=== PATIENT | female | born 1990 | race American Indian/Alaskan Native ===

== ENCOUNTER 2017-03-22 10:16 | Emergency (ER) | payer MEDICAID ==
[2017-03-22 10:20] VITALS: BP 120/76; PULSE 97; RESP 20; TEMP 98.1; O2SAT 100
[2017-03-22] MEDS ORDERED: Sodium Chloride 0.9% 1,000 ML IV ONE (10:52)
[2017-03-22] MEDS ORDERED: Sodium Chloride 0.9% 1,000 ML ONE (11:03)
[2017-03-22 12:13] LABS: BASO % 0.8 % (0.0-2.0); EOS % 0.3 % (0.0-4.0); HEMATOCRIT 36.3 % (34.0-47.0); LYMPH # 1.4 K/uL (1.0-4.3); MEAN CELL VOLUME 76.6 fL (81.0-99.0); MEAN CORPUSCULAR HGB CONC 32.6 g/dL (33.0-37.0); MEAN PLATELET VOLUME 8.4 fL (7.2-11.7); MONO # 0.4 K/uL (0.0-0.8); MONO % 6.5 % (0.0-10.0); NRBC % 0.2 % (0.0-2.0); RED CELL DISTRIBUTION WIDTH 14.5 % (11.5-14.5); WHITE BLOOD COUNT 6.2 K/uL (4.8-10.8)
[2017-03-22 12:24] LABS: RBC URINE 10 /hpf (0-3); URINE BILIRUBIN NEGATIVE (NEGATIVE); URINE BLOOD 2+ (NEGATIVE); URINE COLOR Yellow (YELLOW); URINE GLUCOSE (UA) NORMAL (Normal); URINE KETONE NEGATIVE (NEGATIVE); URINE LEUKOCYTE ESTERASE NEG Leu/uL (Negative); URINE PROTEIN NEGATIVE (NEGATIVE); URINE UROBILINOGEN NORMAL mg/dL (0.2-1.0); WBC URINE 1 /hpf (0-5)
--- NOTE | 2017-03-22 13:32 | US ---
HISTORY: nonpreg, bleeding and pain for 3 weeks COMPARISON: None available. TECHNIQUE: Transabdominal and transvaginal FINDINGS: UTERUS: Measures 8.0 x 4.9 x 4.7 cm. Right posterior intramural fibroid, 2.8 x 2.1 x 2.4 cm. ENDOMETRIUM: Measures 5 mm in diameter. Unremarkable. CERVIX: No cervical abnormality identified. RIGHT OVARY: Measures 4.4 x 2.3 x 4.1 cm. No solid mass. Normal flow. LEFT OVARY: Measures 4.1 x 2.5 x 3.7 cm. No solid mass. Normal flow. FREE FLUID: No significant free fluid noted. OTHER FINDINGS: None. IMPRESSION: 2.8 cm uterine fibroid. Otherwise unremarkable examination.
[2017-03-22 14:37] LABS: BLOOD UREA NITROGEN 7 mg/dL (7-17); GLUCOSE,RANDOM 103 mg/dL (65-105)
[2017-03-22 14:38] LABS: ALB/GLOB RATIO 1.3 (1.0-2.1); BILIRUBIN,TOTAL 0.7 mg/dL (0.2-1.3); CALCIUM 9.2 mg/dl (8.6-10.4); CARBON DIOXIDE 23 mmol/L (22-30); CHLORIDE 102 mmol/L (98-107); GFR AFRICAN-AMERICAN > 60; POTASSIUM 3.7 mmol/L (3.6-5.2); SODIUM 137 mmol/L (132-148); TOTAL PROTEIN 7.5 g/dL (6.3-8.3)
[2017-03-22 14:39] LABS: ALKALINE PHOSPHATASE 42 U/L (38-126); ALT/SGPT 15 U/L (9-52); AST/SGOT 26 U/L (14-36)
--- NOTE | 2017-03-22 15:14 | C.PDOC ---
History Of Present Illness 26 year old female presents to ED with complaints of vaginal bleeding for 3 weeks. She reports feeling mild intermittent cramping pelvic pain which radiates to back. She denies any urinary symptoms or . She denies any weakness, headache, dizziness. Time Seen by Provider: 03/22/17 10:45 Chief Complaint (Nursing): Female Genitourinary History Per: Patient History/Exam Limitations: no limitations Onset/Duration Of Symptoms: Days Associated Symptoms: denies: Fever, Nausea, Vomiting Past Medical History Reviewed: Historical Data, Nursing Documentation, Vital Signs Vital Signs: Last Vital Signs Temp 98.1 F 03/22/17 10:18 Pulse 97 H 03/22/17 10:18 Resp 20 03/22/17 10:18 BP 120/76 03/22/17 10:18 Pulse Ox 100 03/22/17 16:04 Family History: States: No Known Family Hx - Social History Hx Alcohol Use: Yes Hx Substance Use: No Review Of Systems Constitutional: Negative for: Fever, Chills Cardiovascular: Negative for: Chest Pain Respiratory: Negative for: Shortness of Breath Gastrointestinal: Negative for: Nausea, Vomiting, Diarrhea Genitourinary: Positive for: Vaginal Bleeding Musculoskeletal: Positive for: Other (Pelvic Pain) Neurological: Negative for: Weakness, Dizziness Physical Exam - Physical Exam Appears: Non-toxic, No Acute Distress Skin: Normal Color, Warm Head: Atraumatic, Normacephalic Eye(s): bilateral: Normal Inspection, PERRL, EOMI Oral Mucosa: Moist Neck: Normal ROM Chest: Symmetrical Cardiovascular: Rhythm Regular Respiratory: Normal Breath Sounds, No Rales, No Rhonchi, No Wheezing Gastrointestinal/Abdominal: Bowel Sounds (active), Soft, No Tenderness, No Mass , No Distention, No Guarding, No Rebound Back: Normal Inspection, No CVA Tenderness, No Vertebral Tenderness, No Paraspinal Tenderness Extremity: Normal ROM, No Deformity, No Swelling Neurological/Psych: Oriented x3, Normal Speech Gait: Steady ED Course And Treatment - Laboratory Results Result Diagrams: 03/22/17 11:53 03/22/17 11:53 Lab Interpretation: No Acute Changes O2 Sat by Pulse Oximetry: 100 (Room air ) Pulse Ox Interpretation: Normal Medical Decision Making Medical Decision Makin y.o female with vaginal bleeding for 3 weeks. Exam unremarkable Plan: * Labs * US * IV NS Progress: Labs show normal H/H and WNL US shows fibroid. Patient remained well and in no acute distress with stable vital signs. Discussed results with patient, and instructed her to follow up with pump house technician. Will prescribe provera for 10 days. Advise return to ER if symptoms worsen or new symptoms arise. Disposition Counseled Patient/Family Regarding: Studies Performed, Diagnosis, Need For Followup, Rx Given - Disposition Disposition: HOME/ ROUTINE Disposition Time: 14:00 Condition: GOOD Forms: Work/School/Gym Excuse - POA Present On Arrival: None - Clinical Impression Clinical Impression: Dysfunctional uterine bleeding - PA / CRM MARKETING SPECIALIST / Resident Statement MD/DO has reviewed & agrees with the documentation as recorded. - Scribe Statement The provider has reviewed the documentation as recorded by the Karla Green All medical record entries made by the Karla were at my direction and personally dictated by me. I have reviewed the chart and agree that the record accurately reflects my personal performance of the history, physical exam, medical decision making, and the department course for this patient. I have also personally directed, reviewed, and agree with the discharge instructions and disposition.
== END 2017-03-22 14:09 | disposition home or self-care (01) ==
LOC: C.ER 10:16
DX: N93.8 Other specified abnormal uterine and vaginal bleeding (principal)
CPT/HCPCS: 76830; 76856; 80053; 81001; 84703; 85025; 96360; 99283; J7040

== ENCOUNTER 2017-12-20 19:33 | Emergency (ER) | payer MEDICAID ==
[2017-12-20 20:00] VITALS: O2SAT 98
[2017-12-20] MEDS ORDERED: Sodium Chloride 0.9% 1,000 ML IV ONE (20:27)
[2017-12-20 20:51] LABS: BASO % 0.5 % (0.0-2.0); EOS % 0.5 % (0.0-4.0); HCG,QUALITATIVE URINE NEGATIVE (NEGATIVE); LYMPH # 2.1 K/uL (1.0-4.3); LYMPH % 28.4 % (20.0-40.0); MEAN CELL VOLUME 66.2 fL (81.0-99.0); MEAN CORPUSCULAR HEMOGLOBIN 21.1 pg (27.0-31.0); MEAN CORPUSCULAR HGB CONC 31.9 g/dL (33.0-37.0); MEAN PLATELET VOLUME 7.6 fL (7.2-11.7); MONO # 0.5 K/uL (0.0-0.8); MONO % 6.3 % (0.0-10.0); NEUT # 4.9 K/uL (1.8-7.0); NEUT % 64.3 % (50.0-75.0); RBC 4.72 Mil/uL (3.80-5.20); RED CELL DISTRIBUTION WIDTH 17.2 % (11.5-14.5); WHITE BLOOD COUNT 7.6 K/uL (4.8-10.8)
[2017-12-20] MEDS ORDERED: Sodium Chloride 0.9% 1,000 ML ONE (20:51)
[2017-12-20 20:54] LABS: SQUAMOUS EPITHIAL 1 /hpf (0-5); URINE BACTERIA RARE (<OCC); URINE BILIRUBIN NEGATIVE (NEGATIVE); URINE BLOOD NEGATIVE (NEGATIVE); URINE CLARITY Clear (Clear); URINE COLOR Straw (YELLOW); URINE GLUCOSE (UA) NORMAL (Normal); URINE LEUKOCYTE ESTERASE NEG Leu/uL (Negative); URINE NITRATE NEGATIVE (NEGATIVE); URINE PROTEIN NEGATIVE (NEGATIVE); URINE UROBILINOGEN NORMAL mg/dL (0.2-1.0)
[2017-12-20 21:03] LABS: ALB/GLOB RATIO 1.2 (1.0-2.1); ALBUMIN 4.2 g/dL (3.5-5.0); ALT/SGPT 17 U/L (9-52); AST/SGOT 25 U/L (14-36); BLOOD UREA NITROGEN 6 mg/dL (7-17); CALCIUM 9.5 mg/dl (8.6-10.4); GFR AFRICAN-AMERICAN > 60; GFR NON-AFRICAN AMERICAN > 60; LIPASE 96 U/L (23-300)
--- NOTE | 2017-12-20 21:09 | C.PDOC ---
History Of Present Illness 27 y/o female presents to the ER complaining of intermittent epigastric pain which has been present for the past 3 weeks. Patient states that she has associated nausea and vomiting. Patient reports that her LMP was on 11/25/17. She notes that her periods are irregular and she is not sure if she is . Otherwise, patient denies recent illness,fever, chest pain, SOB, food intolerance, back pain, diarrhea, constipation, and UTI sx. Time Seen by Provider: 12/20/17 20:02 Chief Complaint (Nursing): Abdominal Pain History Per: Patient History/Exam Limitations: no limitations Onset/Duration Of Symptoms: Days Current Symptoms Are (Timing): Still Present Severity: Moderate Location Of Pain/Discomfort: Epigastric Associated Symptoms: Nausea, Vomiting. denies: Fever, Diarrhea, Back Pain, Chest Pain, Constipation, Urinary Symptoms Past Medical History Reviewed: Historical Data, Nursing Documentation, Vital Signs Vital Signs: Last Vital Signs Temp 98.4 F 12/20/17 19:57 Pulse 92 H 12/20/17 19:57 Resp 18 12/20/17 19:57 BP 116/75 12/20/17 19:57 Pulse Ox 98 12/20/17 21:20 - Medical History PMH: No Chronic Diseases Other Surgeries: Hx of surgeries Family History: States: No Known Family Hx - Social History Hx Alcohol Use: Yes Hx Substance Use: No Review Of Systems Except As Marked, All Systems Reviewed And Found Negative. Constitutional: Negative for: Fever, Chills Cardiovascular: Negative for: Chest Pain Respiratory: Negative for: Shortness of Breath Gastrointestinal: Positive for: Nausea, Vomiting, Abdominal Pain (epigastric pain). Negative for: Diarrhea, Constipation Genitourinary: Negative for: Dysuria, Incontinence, Hematuria Musculoskeletal: Negative for: Back Pain Physical Exam - Physical Exam Appears: Non-toxic, No Acute Distress Skin: Normal Color, Warm Head: Atraumatic, Normacephalic Eye(s): bilateral: Normal Inspection Nose: Normal Neck: Supple Chest: Symmetrical Cardiovascular: Rhythm Regular Respiratory: Normal Breath Sounds, No Accessory Muscle Use, No Rales, No Rhonchi , No Wheezing Gastrointestinal/Abdominal: Normal Exam, Soft, Tenderness (epigastric tenderness ), No Guarding, No Rebound Back: Normal Inspection, No CVA Tenderness Extremity: Normal ROM Neurological/Psych: Oriented x3, Normal Speech, Normal Motor, Normal Sensation ED Course And Treatment - Laboratory Results Result Diagrams: 12/20/17 20:42 12/20/17 20:42 Lab Interpretation: No Changes Compared To Prior Results Urine POC: Negative O2 Sat by Pulse Oximetry: 98 (RA) Pulse Ox Interpretation: Normal - Other Rad Abd, 2views X-Ray: Interpreted by Me, Viewed By Me Interpretation: (-) air-fluid level, (+) retained stool Progress Note: Pt was OBS in ED for 3 hours and remained stable. On re- evaluation, pt is afebrile, hemodynamicaly stable. non-toxic. Tolerate PO well in ED. PUlseOx 98% RA. ENT: no acute findings. neck: Supple, (-) JVD. Lungs : CTA B/L, BS equal B/L. Abd: soft, (-) guarding, (-) rebound. back: (-) CVA tenderness. Abd review (-) air-fluid level, (+) constipation. Blood work review, no new acute findings. preg (-). Pt has clinical findings c/w epigastric pain, constipation. Pt advised. ref. to f/u with PMD, GI in 2-3 days for re-eval. return to ED if anyw orsening or new changes. Disposition Counseled Patient/Family Regarding: Studies Performed, Diagnosis, Need For Followup, Rx Given - Disposition Referrals: [facility] [Outside] Disposition: HOME/ ROUTINE Disposition Time: 22:54 Condition: STABLE Additional Instructions: Encourage fluids take medication as prescribed Follow up with PMD, GI in 2-3 days for re-evaluation. Return to ED if nay worsening or new changes. Prescriptions: Pantoprazole Sodium [Protonix] 20 mg PO DAILY #20 tablet. Polyethylene Glycol 3350 [Miralax] 17 gm PO DAILY #1 bottle Instructions: Constipation, Adult (DC), High Fiber Diet Forms: [facility] (Citizen [place]) - Clinical Impression Clinical Impression: Constipation, Epigastric abdominal pain - PA / [employer] CONSULTANT / Resident Statement MD/DO has reviewed & agrees with the documentation as recorded. - Scribe Statement The provider has reviewed the documentation as recorded by the Karla Adkins Provider Attestation All medical record entries made by the Scribe were at my direction and personally dictated by me. I have reviewed the chart and agree that the record accurately reflects my personal performance of the history, physical exam, medical decision making, and the department course for this patient. I have also personally directed, reviewed, and agree with the discharge instructions and disposition.
[2017-12-20] MEDS ORDERED: Pantoprazole 40 mg EC Tab PO ONE (22:09)
[2017-12-20] MEDS ORDERED: Pantoprazole 40 mg EC Tab PO STA (22:11)
[2017-12-20] MEDS ORDERED: Bisacodyl 5mg EC Tab PO ONE (22:54)
[2017-12-20 23:21] VITALS: BP 116/80; PULSE 80; RESP 20; TEMP 98
--- NOTE | 2017-12-21 08:57 | RAD ---
HISTORY: pain COMPARISON: No prior. FINDINGS: BOWEL: Normal. No obstruction. No free air. BONES: Normal. OTHER FINDINGS: None. IMPRESSION: No active disease.
== END 2017-12-20 23:28 | disposition home or self-care (01) ==
LOC: C.ER 19:33
DX: K59.00 Constipation, unspecified (principal); R10.13 Epigastric pain
CPT/HCPCS: 74019; 80053; 81001; 83690; 84702; 84703; 85025; 96361; 96374; 96375; 99284; J2405; J7040